=== PATIENT | female | born 1990 | race Caucasian/White ===

== ENCOUNTER 2023-03-01 17:06 | Emergency (ER) | payer OTHER, MEDICAID ==
[~2023-03-01] VITALS: Ht 167.6 cm; Wt 72.6 kg
[~2023-03-01 17:06] MED LIST: UNKNOWN MEDS
[2023-03-01 17:38] VITALS: BP 113/78; PULSE 89; RESP 18; TEMP 98; O2SAT 98
[2023-03-01 18:29] LABS: BASOPHILS # (AUTO) 0.1 K/uL (0.00-0.22); BASOPHILS % (AUTO) 0.9 % (0.0-2.0); HEMATOCRIT 46.5 % (36-48); HEMOGLOBIN 15.8 g/dL (12.0-16.0); LYMPHOCYTES # (AUTO) 0.7 K/uL (2.5-16.5); LYMPHOCYTES % (AUTO) 6.3 % (20.5-51.1); MEAN CORPUSCULAR HEMOGLOBIN 31 pg (27-31); MEAN CORPUSCULAR HGB CONC 34 g/dL (33-37); MEAN CORPUSCULAR VOLUME 90.3 fL (80-94); MONOCYTES # (AUTO) 0.8 K/uL (0.8-1.0); MONOCYTES % (AUTO) 7.2 % (1.7-9.3); NEUTROPHILS % (AUTO) 85.6 % (42.2-75.2); PLATELET COUNT (AUTO) 226 K/uL (140-450); RED BLOOD CELL COUNT(AUTO) 5.15 MIL/uL (4.20-5.40); RED CELL DISTRIBUTION WIDTH 13.4 % (11.6-13.7); WHITE BLOOD COUNT (AUTO) 11.7 K/uL (4.8-10.8)
[2023-03-01 18:45] LABS: ALBUMIN 3.5 g/dL (3.4-5.0); ANION GAP 9.6 (8-16); CARBON DIOXIDE 31.3 mmol/L (21-32); CREATININE 0.6 mg/dL (0.6-1.3); POTASSIUM 3.9 mmol/L (3.5-5.1); TOTAL BILIRUBIN 0.2 mg/dL (0.0-1.0); TOTAL PROTEIN, SERUM 8.6 g/dL (6.4-8.2)
[2023-03-01] MEDS ORDERED: LIDOCAINE 5% 1 EA PATCH TP ONE (19:45)
[2023-03-01] MEDS ORDERED: KETOROLAC 30 MG/ML VIAL IM ONE (19:45)
[2023-03-01] MEDS ORDERED: IBUP-2213 PO (22:15)
[2023-03-01] MEDS ORDERED: LID5T TP (22:15)
[2023-03-01] MEDS ORDERED: SULF-59 PO (22:15)
[2023-03-01 22:57] LABS: APPEARANCE,URINE CLEAR (CLEAR); BILIRUBIN,URINE NEGATIVE (NEGATIVE); BLOOD, URINE NEGATIVE (NEGATIVE); COLOR,URINE YELLOW (YELLOW); LEUKOCYTE ESTERASE ,URINE TRACE (NEGATIVE); NITRITE, URINE NEGATIVE (NEGATIVE); PROTEIN,URINE NEGATIVE (NEGATIVE); UGLUCOSE NEGATIVE (NEGATIVE); UROBILINOGEN,URINE 0.2 EU/dL (0.2 - 1)
[2023-03-01 23:15] LABS: BACTERIA,URINE >30 (MANY) /HPF (None Seen); MUCUS,URINE 1+ /LPF (None Seen); RBC,URINE 0-5 /HPF (0-5)
== END 2023-03-01 22:21 | disposition home or self-care (01) ==
LOC: MED 17:06
DX: S81.801A Unspecified open wound, right lower leg, initial encounter (principal); L08.89 Other specified local infections of the skin and subcutaneous tissue; M54.50 Low back pain, unspecified; R07.89 Other chest pain; Z79.899 Other long term (current) drug therapy; Z79.2 Long term (current) use of antibiotics; Z79.1 Long term (current) use of non-steroidal anti-inflammatories (NSAID); V29.99XA Rider (driver) (passenger) of other motorcycle injured in unspecified traffic accident, initial encounter; Y93.89 Activity, other specified; Y92.410 Unspecified street and highway as the place of occurrence of the external cause; Y99.8 Other external cause status
CPT/HCPCS: 36415; 80053; 81001; 81025; 83690; 85025; 87086; 93005; 96372; 99284; J1885